=== PATIENT | male | born 1955 | race African-American/Black ===

== ENCOUNTER 2022-01-05 00:32 | Inpatient (IN) | payer MEDICARE ==
[2022-01-05] MEDS ORDERED: Lorazepam 2 MG/ML VIAL ONE ×2 (00:36→03:50)
[2022-01-05 01:02] LABS: #Basophils 0.1 thou/uL (0.0-0.2); #Eosinphils 0.3 thou/uL (0.0-0.7); #Lymphocytes 3.1 thou/uL (1.20-3.40); #Monocytes 0.8 thou/uL (0.11-0.59); #Neutrophils 3.9 thou/uL (1.40-6.50); %Basophils 0.8 % (0.0-1.0); %Eosinophils 3.8 % (0.0-10.0); %Lymphocytes 37.8 % (21.0-51.0); %Monocytes 9.4 % (0.0-10.0); %Neutrophils 48.3 % (42.0-75.0); Hemoglobin 12.1 g/dL (14.0-18.0); Mean Corpuscular HGB CONC 33.6 g/dL (32.0-36.0); Mean Corpuscular Hemoglobin 34.8 pg (27.0-31.0); Mean Platelet Volume 6.1 fL (7.4-10.4); Platelet Count 273 thou/uL (130-400); RBC Distribution Width 12.1 % (11.5-14.5); Red Blood Cell (RBC) Count 3.49 mill/uL (4.70-6.10); White Blood Cell (WBC) Count 8.2 thou/uL (4.8-10.8)
[2022-01-05 01:15] LABS: INR-International Normal Ratio 1.2; Prothrombin Time 15.5 sec (12.0-14.7)
[2022-01-05 01:25] LABS: ALT (SGPT) 11 U/L (8-55); AST (SGOT) 15 U/L (5-34); Albumin 3.3 g/dL (3.4-4.8); Alkaline Phosphatase 67 U/L (40-110); Anion Gap 11 mmol/L (10-20); BUN (Urea Nitrogen) 13 mg/dL (8.4-25.7); Bilirubin, Total 0.2 mg/dL (0.2-1.2); Calc. Creatinine Clearance 0 mL/min (70-130); Calcium 8.4 mg/dL (7.8-10.44); Carbon Dioxide 26 mmol/L (23-31); Chloride 102 mmol/L (98-107); Globulin 3.7 g/dL (2.4-3.5); Glucose 126 mg/dL (80-115); Potassium 3.9 mmol/L (3.5-5.1); Sodium 135 mmol/L (136-145)
[2022-01-05] MEDS ORDERED: Lorazepam 2 MG/ML VIAL SLOW IVP PRN (04:05)
[2022-01-05] MEDS ORDERED: Acetaminophen 650 MG Suppository PR PRN (04:05)
[2022-01-05] MEDS ORDERED: Acetaminophen 325 MG TAB PO PRN (04:05)
[2022-01-05] MEDS ORDERED: Ondansetron ODT 4 MG TAB PO PRN (04:05)
[2022-01-05] MEDS ORDERED: Ondansetron PF 4 MG/2 ML Vial IVP PRN (04:05)
[2022-01-05] MEDS ORDERED: levETIRAcetam 500 MG/5 ML VIAL SLOW IVP SCH ×2 (04:15→21:00)
[2022-01-05 05:04] VITALS: BMI 18.8
[2022-01-05 07:35] LABS: Iron 89 ug/dL (65-175); Iron Binding Capacity, Total 209 mcg/dL (261-462)
[2022-01-05 07:58] LABS: Ferritin 1087.13 ng/mL (22-322)
[2022-01-05] MEDS: Enoxaparin Sodium 40 MG/0.4 ML SYRINGE SC SCH (08:06)
[2022-01-05] MEDS ORDERED: Iopamidol 370 76% 100 ML VIAL ONE (10:15)
[2022-01-05 16:23] LABS: SARS-CoV-2 PCR by NAA Not Detected (NotDetected)
[2022-01-05] MEDS: Lacosamide 100 MG in Sodium Chloride 0.9% 50 ML IVPB SCH (21:22)
[2022-01-05] MEDS: levETIRAcetam 500 MG/5 ML VIAL SLOW IVP SCH (21:23)
[2022-01-06 05:37] LABS: #Basophils 0.1 thou/uL (0.0-0.2); #Eosinphils 0.2 thou/uL (0.0-0.7); #Lymphocytes 3.9 thou/uL (1.20-3.40); #Monocytes 1.8 thou/uL (0.11-0.59); #Neutrophils 6.5 thou/uL (1.40-6.50); %Basophils 0.5 % (0.0-1.0); %Eosinophils 1.5 % (0.0-10.0); %Lymphocytes 31.1 % (21.0-51.0); %Monocytes 14.5 % (0.0-10.0); %Neutrophils 52.3 % (42.0-75.0); Hemoglobin 12.8 g/dL (14.0-18.0); Mean Corpuscular HGB CONC 32.7 g/dL (32.0-36.0); Mean Corpuscular Hemoglobin 33.9 pg (27.0-31.0); Mean Platelet Volume 6.2 fL (7.4-10.4); Platelet Count 305 thou/uL (130-400); RBC Distribution Width 12.3 % (11.5-14.5); Red Blood Cell (RBC) Count 3.76 mill/uL (4.70-6.10); White Blood Cell (WBC) Count 12.4 thou/uL (4.8-10.8)
[2022-01-06 05:47] LABS: Phosphorus 3.1 mg/dL (2.3-4.7)
[2022-01-06 05:50] LABS: Anion Gap 11 mmol/L (10-20); BUN (Urea Nitrogen) 14 mg/dL (8.4-25.7); Calc. Creatinine Clearance 73 mL/min (70-130); Calcium 9.2 mg/dL (7.8-10.44); Carbon Dioxide 29 mmol/L (23-31); Cardiac Risk 3.7 (Less than 4.5); Chloride 103 mmol/L (98-107); Cholesterol 132 mg/dl (< 200 Desired); Glucose 90 mg/dL (80-115); HDL Cholesterol 36 mg/dL (>60 Neg Risk); LDL Cholesterol, Calculated 79 mg/dL; Magnesium 1.9 mg/dL (1.6-2.6); Potassium 3.4 mmol/L (3.5-5.1); Sodium 140 mmol/L (136-145); Triglycerides 85 mg/dL (Less than 150)
[2022-01-06] MEDS: Enoxaparin Sodium 40 MG/0.4 ML SYRINGE SC SCH (08:46)
[2022-01-06] MEDS: levETIRAcetam 500 MG/5 ML VIAL SLOW IVP SCH ×2 (08:47→21:00)
[2022-01-06] MEDS: Lacosamide 100 MG in Sodium Chloride 0.9% 50 ML IVPB SCH ×2 (09:08→21:00)
[2022-01-07] MEDS ORDERED: Melatonin 3 MG TAB PO PRN (07:40)
[2022-01-07] MEDS ORDERED: Aspirin 81 mg Enteric Coated Tablet PO SCH (09:00)
[2022-01-07] MEDS ORDERED: Carvedilol 3.125 MG TAB PO SCH (09:00)
[2022-01-07] MEDS ORDERED: Folic Acid 1 MG TAB PO SCH (09:00)
[2022-01-07] MEDS ORDERED: Famotidine 20 MG TAB PO SCH (09:00)
[2022-01-07] MEDS: Enoxaparin Sodium 40 MG/0.4 ML SYRINGE SC SCH (09:27)
[2022-01-07] MEDS: levETIRAcetam 500 MG/5 ML VIAL SLOW IVP SCH (09:27)
[2022-01-07] MEDS: Lacosamide 100 MG in Sodium Chloride 0.9% 50 ML IVPB SCH (09:39)
[2022-01-07] MEDS ORDERED: Potassium Chloride 20 MEQ TAB PO SCH (10:30)
[2022-01-07 12:46] VITALS: TEMP 98.8
[2022-01-07 13:55] VITALS: BP 87/57
[2022-01-07] MEDS ORDERED: Tamsulosin HCl 0.4 MG CAP PO SCH (21:00)
== END 2022-01-07 15:10 | DRG 101 ==
LOC: ERS 00:32 → NEURO 02:41
PROVIDERS: ADMIT Internal Medicine; ATTEND Internal Medicine
DX: G40.909 Epilepsy, unspecified, not intractable, without status epilepticus (principal); A52.3 Neurosyphilis, unspecified; E87.1 Hypo-osmolality and hyponatremia; I47.1 Supraventricular tachycardia; Z20.822 Contact with and (suspected) exposure to COVID-19; E87.6 Hypokalemia; R33.9 Retention of urine, unspecified; N40.1 Benign prostatic hyperplasia with lower urinary tract symptoms; R33.8 Other retention of urine; I48.91 Unspecified atrial fibrillation; D53.9 Nutritional anemia, unspecified; I77.89 Other specified disorders of arteries and arterioles; R59.1 Generalized enlarged lymph nodes; I65.02 Occlusion and stenosis of left vertebral artery; Z86.73 Personal history of transient ischemic attack (TIA), and cerebral infarction without residual deficits; Z79.899 Other long term (current) drug therapy; Z79.82 Long term (current) use of aspirin
CPT/HCPCS: 36415; 36416; 70450; 70496; 70498; 70551; 71045; 72125; 80048; 80061; 80177; 82607; 82728; 82746; 83540; 83550; 83605; 83735; 84100; 84484; 85025; 85610; 85730; 93005; 95816; 95819; 95957; 96374; 96376; C9254; J1650; J1953; J2060; Q9967; U0003; U0005

== ENCOUNTER 2022-04-10 08:52 | Inpatient (IN) | payer MEDICARE, MEDICAID ==
[2022-04-10] MEDS ORDERED: Midazolam HCl 2 mg/2 ml Vial ONE (08:58)
[2022-04-10] MEDS ORDERED: levETIRAcetam 500 MG/5 ML VIAL ONE (08:58)
[2022-04-10 09:25] LABS: #Eosinphils 0.3 thou/uL (0.0-0.7); #Lymphocytes 4.2 thou/uL (1.20-3.40); #Monocytes 1.3 thou/uL (0.11-0.59); #Neutrophils 6.4 thou/uL (1.40-6.50); %Basophils 0.3 % (0.0-1.0); %Eosinophils 2.5 % (0.0-10.0); %Lymphocytes 34.5 % (21.0-51.0); %Monocytes 10.6 % (0.0-10.0); %Neutrophils 52.1 % (42.0-75.0); Hemoglobin 12.3 g/dL (14.0-18.0); Mean Corpuscular HGB CONC 32.1 g/dL (32.0-36.0); Mean Corpuscular Hemoglobin 33.1 pg (27.0-31.0); Mean Platelet Volume 6.6 fL (7.4-10.4); Platelet Count 269 thou/uL (130-400); RBC Distribution Width 12.1 % (11.5-14.5); Red Blood Cell (RBC) Count 3.74 mill/uL (4.70-6.10); White Blood Cell (WBC) Count 12.2 thou/uL (4.8-10.8)
[2022-04-10 09:35] LABS: INR-International Normal Ratio 1.1; Prothrombin Time 14.6 sec (12.0-14.7)
[2022-04-10 09:36] LABS: PTT 34.2 sec (22.9-36.1)
[2022-04-10 09:39] LABS: ALT (SGPT) 10 U/L (8-55); AST (SGOT) 14 U/L (5-34); Albumin 3.8 g/dL (3.4-4.8); Alkaline Phosphatase 74 U/L (40-110); Anion Gap 12 mmol/L (10-20); BUN (Urea Nitrogen) 12 mg/dL (8.4-25.7); Bilirubin, Total 0.4 mg/dL (0.2-1.2); CK (CPK) 68 U/L (30-200); Calc. Creatinine Clearance 0 mL/min (70-130); Calcium 8.8 mg/dL (7.8-10.44); Carbon Dioxide 26 mmol/L (23-31); Chloride 105 mmol/L (98-107); Estimated GFR 97; Globulin 4.3 g/dL (2.4-3.5); Glucose 103 mg/dL (80-115); Lipase 21 U/L (8-78); Potassium 3.6 mmol/L (3.5-5.1); Protein, Total 8.1 g/dL (5.8-8.1); Sodium 139 mmol/L (136-145)
[2022-04-10] MEDS ORDERED: Iopamidol 370 76% 100 ML VIAL ONE (09:55)
[2022-04-10] MEDS ORDERED: hydrALAZINE 20 MG/ML VIAL SLOW IVP PRN (11:53)
[2022-04-10] MEDS ORDERED: Aspirin 300 MG Suppository ONE (12:13)
[2022-04-10 13:21] LABS: Bilirubin Negative (Negative); Blood, Urine Negative (Negative); Clarity Clear (Clear); Glucose, Urine (Dipstick) Normal (Negative); Ketone, Urine Negative (Negative); Leukocyte Negative Leu/uL (Negative); Nitrite Negative (Negative); Protein, Urine (Dipstick) Negative (Neg-Trace); Specific Gravity, Urine 1.039 (1.002-1.036); Urobilinogen Normal mg/dL (Less than 2)
[2022-04-10] MEDS ORDERED: Midazolam HCl 2 mg/2 ml Vial SLOW IVP PRN (17:39)
[2022-04-10 18:25] VITALS: BMI 18.6
[2022-04-10] MEDS: Atorvastatin Calcium 40 MG TAB PO SCH (20:46)
[2022-04-10] MEDS: levETIRAcetam 500 mg/5 ml Oral Solution PO SCH (20:46)
[2022-04-10] MEDS: Tamsulosin HCl 0.4 MG CAP PO SCH (20:46)
[2022-04-10] MEDS: Lacosamide 50 mg Tablet PO SCH (20:46)
[2022-04-10] MEDS: Melatonin 3 MG TAB PO PRN (20:46)
[2022-04-10] MEDS ORDERED: Enoxaparin Sodium 60 MG/0.6 ML SYRINGE SC SCH (21:00)
[2022-04-10] MEDS ORDERED: levETIRAcetam 500 MG/5 ML VIAL SLOW IVP SCH (21:00)
[2022-04-10] MEDS ORDERED: Lacosamide 100 MG in Sodium Chloride 0.9% 50 ML IVPB SCH (21:00)
[2022-04-11 04:52] LABS: #Eosinphils 0.1 thou/uL (0.0-0.7); #Lymphocytes 2.5 thou/uL (1.20-3.40); #Monocytes 1.2 thou/uL (0.11-0.59); #Neutrophils 7.2 thou/uL (1.40-6.50); %Basophils 0.2 % (0.0-1.0); %Eosinophils 0.9 % (0.0-10.0); %Lymphocytes 22.4 % (21.0-51.0); %Monocytes 11.3 % (0.0-10.0); %Neutrophils 65.3 % (42.0-75.0); Mean Corpuscular HGB CONC 32.9 g/dL (32.0-36.0); Mean Corpuscular Hemoglobin 33.6 pg (27.0-31.0); Mean Platelet Volume 6.5 fL (7.4-10.4); Platelet Count 264 thou/uL (130-400); RBC Distribution Width 12.1 % (11.5-14.5); Red Blood Cell (RBC) Count 3.58 mill/uL (4.70-6.10)
[2022-04-11 05:16] LABS: Anion Gap 12 mmol/L (10-20); BUN (Urea Nitrogen) 9 mg/dL (8.4-25.7); Calc. Creatinine Clearance 88 mL/min (70-130); Calcium 8.8 mg/dL (7.8-10.44); Carbon Dioxide 25 mmol/L (23-31); Cardiac Risk 4.3 (Less than 4.5); Chloride 106 mmol/L (98-107); Cholesterol 133 mg/dl (< 200 Desired); Estimated GFR 99; Glucose 105 mg/dL (80-115); HDL Cholesterol 31 mg/dL (>60 Neg Risk); LDL Cholesterol, Calculated 94 mg/dL; Potassium 3.3 mmol/L (3.5-5.1); Sodium 140 mmol/L (136-145); Triglycerides 42 mg/dL (Less than 150)
[2022-04-11] MEDS ORDERED: FERROUS SULFATE 220 MG/5 ML PO SCH (09:00)
[2022-04-11] MEDS: levETIRAcetam 500 mg/5 ml Oral Solution PO SCH ×2 (09:06→21:10)
[2022-04-11] MEDS: Folic Acid 1 MG TAB PO SCH (09:08)
[2022-04-11] MEDS: Aspirin 325 mg Enteric Coated Tablet PO SCH (09:08)
[2022-04-11] MEDS: Ferrous Sulfate 325 MG TAB PO SCH (09:08)
[2022-04-11] MEDS: Lacosamide 50 mg Tablet PO SCH ×2 (09:08→21:10)
[2022-04-11] MEDS: Carvedilol 3.125 MG TAB PO SCH ×2 (09:08→21:11)
[2022-04-11 17:20] LABS: Bacteria/HPF 4+ HPF (None Seen); Bilirubin Negative (Negative); Blood, Urine 3+ (Negative); Clarity Clear (Clear); Glucose, Urine (Dipstick) Normal (Negative); Ketone, Urine Negative (Negative); Leukocyte 500 Leu/uL (Negative); Nitrite Negative (Negative); Protein, Urine (Dipstick) Negative (Neg-Trace); Specific Gravity, Urine 1.009 (1.002-1.036); Squamous Epithelial 0-3 HPF (0-3); Urobilinogen Normal mg/dL (Less than 2); WBC/HPF Greater than 50 HPF (0-3); pH, Urine 6.5 (5.0-9.0)
[2022-04-11 17:22] LABS: Urine Culture Reflex Yes Yes
[2022-04-11] MEDS: Enoxaparin Sodium 40 MG/0.4 ML SYRINGE SC SCH (21:11)
[2022-04-11] MEDS: Atorvastatin Calcium 40 MG TAB PO SCH (21:11)
[2022-04-11] MEDS: Tamsulosin HCl 0.4 MG CAP PO SCH (21:11)
[2022-04-12] MEDS ORDERED: Electrolyte Replacement Protocol FS PRN (05:30)
[2022-04-12] MEDS ORDERED: Potassium Chloride 20 MEQ TAB PO SCH (05:30)
[2022-04-12] MEDS ORDERED: Potassium Bicarbonate/Cit Ac 20 MEQ TAB PO SCH (05:45)
[2022-04-12 06:42] LABS: #Eosinphils 0.2 thou/uL (0.0-0.7); #Lymphocytes 3.4 thou/uL (1.20-3.40); #Monocytes 2.1 thou/uL (0.11-0.59); %Basophils 0.2 % (0.0-1.0); %Eosinophils 0.9 % (0.0-10.0); %Lymphocytes 19.4 % (21.0-51.0); %Monocytes 11.7 % (0.0-10.0); %Neutrophils 67.8 % (42.0-75.0); Hemoglobin 12.4 g/dL (14.0-18.0); Mean Corpuscular HGB CONC 31.8 g/dL (32.0-36.0); Mean Corpuscular Hemoglobin 32.2 pg (27.0-31.0); Mean Platelet Volume 6.1 fL (7.4-10.4); Platelet Count 293 thou/uL (130-400); RBC Distribution Width 12.2 % (11.5-14.5); Red Blood Cell (RBC) Count 3.87 mill/uL (4.70-6.10); White Blood Cell (WBC) Count 17.7 thou/uL (4.8-10.8)
[2022-04-12 06:55] LABS: Anion Gap 13 mmol/L (10-20); BUN (Urea Nitrogen) 13 mg/dL (8.4-25.7); Calc. Creatinine Clearance 79 mL/min (70-130); Calcium 9.1 mg/dL (7.8-10.44); Carbon Dioxide 26 mmol/L (23-31); Chloride 105 mmol/L (98-107); Estimated GFR 96; Glucose 97 mg/dL (80-115); Magnesium 1.8 mg/dL (1.6-2.6); Potassium 3.3 mmol/L (3.5-5.1); Sodium 141 mmol/L (136-145)
[2022-04-12] MEDS ORDERED: Magnesium 2 GM/50 ML(in water) 2 GM in Premix Bag 1 BAG IVPB SCH (08:00)
[2022-04-12] MEDS: Aspirin 325 mg Enteric Coated Tablet PO SCH (09:01)
[2022-04-12] MEDS: Ferrous Sulfate 325 MG TAB PO SCH (09:01)
[2022-04-12] MEDS: Carvedilol 3.125 MG TAB PO SCH (09:02)
[2022-04-12] MEDS: Folic Acid 1 MG TAB PO SCH (09:02)
[2022-04-12] MEDS: Lacosamide 50 mg Tablet PO SCH ×2 (09:02→21:03)
[2022-04-12] MEDS: levETIRAcetam 500 mg/5 ml Oral Solution PO SCH ×2 (09:02→20:49)
[2022-04-12 11:21] LABS: Potassium 4.2 mmol/L (3.5-5.1)
[2022-04-12] MEDS ORDERED: Sodium Chloride 0.9% 500 ML IV SCH ×2 (16:00→20:30)
[2022-04-12] MEDS ORDERED: Carvedilol 6.25 MG TAB PO SCH (17:00)
[2022-04-12] MEDS: Atorvastatin Calcium 40 MG TAB PO SCH (20:49)
[2022-04-12] MEDS: Enoxaparin Sodium 40 MG/0.4 ML SYRINGE SC SCH (20:49)
[2022-04-12] MEDS: Tamsulosin HCl 0.4 MG CAP PO SCH (20:49)
[2022-04-12] MEDS: Melatonin 3 MG TAB PO PRN (20:49)
[2022-04-12 21:27] LABS: Anion Gap 13 mmol/L (10-20); BUN (Urea Nitrogen) 16 mg/dL (8.4-25.7); Calc. Creatinine Clearance 73 mL/min (70-130); Calcium 8.6 mg/dL (7.8-10.44); Carbon Dioxide 24 mmol/L (23-31); Chloride 106 mmol/L (98-107); Estimated GFR 94; Glucose 111 mg/dL (80-115); Magnesium 1.9 mg/dL (1.6-2.6); Potassium 3.6 mmol/L (3.5-5.1); Sodium 139 mmol/L (136-145)
[2022-04-13] MEDS ORDERED: Magnesium 2 GM/50 ML(in water) 2 GM in Premix Bag 1 BAG IVPB SCH (02:00)
[2022-04-13 05:22] LABS: #Eosinphils 0.1 thou/uL (0.0-0.7); #Lymphocytes 3.6 thou/uL (1.20-3.40); #Monocytes 2.4 thou/uL (0.11-0.59); #Neutrophils 12.5 thou/uL (1.40-6.50); %Basophils 0.2 % (0.0-1.0); %Eosinophils 0.7 % (0.0-10.0); %Lymphocytes 19.2 % (21.0-51.0); %Monocytes 12.8 % (0.0-10.0); %Neutrophils 67.2 % (42.0-75.0); Hemoglobin 11.5 g/dL (14.0-18.0); Mean Corpuscular HGB CONC 33.8 g/dL (32.0-36.0); Mean Corpuscular Hemoglobin 34.3 pg (27.0-31.0); Mean Platelet Volume 6.6 fL (7.4-10.4); Platelet Count 259 thou/uL (130-400); RBC Distribution Width 12.1 % (11.5-14.5); Red Blood Cell (RBC) Count 3.35 mill/uL (4.70-6.10); White Blood Cell (WBC) Count 18.6 thou/uL (4.8-10.8)
[2022-04-13 05:41] LABS: Anion Gap 11 mmol/L (10-20); BUN (Urea Nitrogen) 16 mg/dL (8.4-25.7); Calc. Creatinine Clearance 82 mL/min (70-130); Calcium 8.5 mg/dL (7.8-10.44); Carbon Dioxide 24 mmol/L (23-31); Chloride 107 mmol/L (98-107); Estimated GFR 97; Glucose 106 mg/dL (80-115); Magnesium 2.6 mg/dL (1.6-2.6); Potassium 3.4 mmol/L (3.5-5.1); Sodium 139 mmol/L (136-145)
[2022-04-13] MEDS ORDERED: Potassium Bicarbonate/Cit Ac 20 MEQ TAB PO SCH (08:00)
[2022-04-13] MEDS: Aspirin 325 mg Enteric Coated Tablet PO SCH (08:52)
[2022-04-13] MEDS: levETIRAcetam 500 mg/5 ml Oral Solution PO SCH ×2 (08:52→21:50)
[2022-04-13] MEDS: Ferrous Sulfate 325 MG TAB PO SCH (08:53)
[2022-04-13] MEDS: Metoprolol Tartrate 25 MG TAB PO SCH ×2 (08:53→21:50)
[2022-04-13] MEDS: Lacosamide 50 mg Tablet PO SCH ×2 (08:53→21:49)
[2022-04-13] MEDS: Folic Acid 1 MG TAB PO SCH (08:53)
[2022-04-13] MEDS ORDERED: cefTRIAXone\\ROCEPHIN 1 GM in Sodium Chloride 0.9% 100 ML IVPB SCH (15:00)
[2022-04-13] MEDS: Tamsulosin HCl 0.4 MG CAP PO SCH (21:49)
[2022-04-13] MEDS: Atorvastatin Calcium 40 MG TAB PO SCH (21:49)
[2022-04-13] MEDS: Enoxaparin Sodium 40 MG/0.4 ML SYRINGE SC SCH (21:50)
[2022-04-14 05:17] LABS: #Eosinphils 0.1 thou/uL (0.0-0.7); #Monocytes 1.7 thou/uL (0.11-0.59); #Neutrophils 7.4 thou/uL (1.40-6.50); %Basophils 0.3 % (0.0-1.0); %Eosinophils 1.3 % (0.0-10.0); %Lymphocytes 17.5 % (21.0-51.0); %Monocytes 14.8 % (0.0-10.0); %Neutrophils 66.1 % (42.0-75.0); Hemoglobin 11.9 g/dL (14.0-18.0); Mean Corpuscular Hemoglobin 33.4 pg (27.0-31.0); Mean Platelet Volume 6.4 fL (7.4-10.4); Platelet Count 256 thou/uL (130-400); Red Blood Cell (RBC) Count 3.57 mill/uL (4.70-6.10); White Blood Cell (WBC) Count 11.2 thou/uL (4.8-10.8)
[2022-04-14 05:42] LABS: ALT (SGPT) 9 U/L (8-55); AST (SGOT) 12 U/L (5-34); Albumin 3.4 g/dL (3.4-4.8); Alkaline Phosphatase 66 U/L (40-110); Anion Gap 13 mmol/L (10-20); BUN (Urea Nitrogen) 14 mg/dL (8.4-25.7); Bilirubin, Total 0.4 mg/dL (0.2-1.2); Calc. Creatinine Clearance 85 mL/min (70-130); Calcium 8.6 mg/dL (7.8-10.44); Carbon Dioxide 24 mmol/L (23-31); Chloride 104 mmol/L (98-107); Estimated GFR 98; Globulin 4.3 g/dL (2.4-3.5); Glucose 97 mg/dL (80-115); Potassium 3.5 mmol/L (3.5-5.1); Protein, Total 7.7 g/dL (5.8-8.1); Sodium 137 mmol/L (136-145)
[2022-04-14] MEDS ORDERED: Potassium Bicarbonate/Cit Ac 20 MEQ TAB PO SCH (08:00)
[2022-04-14] MEDS: Aspirin 325 mg Enteric Coated Tablet PO SCH (08:15)
[2022-04-14] MEDS: levETIRAcetam 500 mg/5 ml Oral Solution PO SCH (08:15)
[2022-04-14] MEDS: Folic Acid 1 MG TAB PO SCH (08:16)
[2022-04-14] MEDS: Ferrous Sulfate 325 MG TAB PO SCH (08:16)
[2022-04-14] MEDS: Metoprolol Tartrate 25 MG TAB PO SCH (08:16)
[2022-04-14] MEDS: Lacosamide 50 mg Tablet PO SCH (08:16)
[2022-04-14 11:54] VITALS: BP 114/70; TEMP 98.8
[2022-04-14] MEDS ORDERED: cefTRIAXone\\ROCEPHIN 1 GM in Sodium Chloride 0.9% 100 ML IVPB SCH (15:00)
== END 2022-04-14 15:25 | DRG 100 ==
LOC: ERS 08:52 → ERHOLD 11:26 → NEURO 17:39 → OBSVTOIN 04-11 11:30
PROVIDERS: ADMIT Student in an Organized Health Care Education/Training Program; ATTEND Student in an Organized Health Care Education/Training Program
DX: G40.909 Epilepsy, unspecified, not intractable, without status epilepticus (principal); G93.41 Metabolic encephalopathy; N30.00 Acute cystitis without hematuria; I47.1 Supraventricular tachycardia; Z16.23 Resistance to quinolones and fluoroquinolones; A52.3 Neurosyphilis, unspecified; I48.0 Paroxysmal atrial fibrillation; I10 Essential (primary) hypertension; N40.0 Benign prostatic hyperplasia without lower urinary tract symptoms; D53.9 Nutritional anemia, unspecified; B96.4 Proteus (mirabilis) (morganii) as the cause of diseases classified elsewhere; Z86.73 Personal history of transient ischemic attack (TIA), and cerebral infarction without residual deficits; Z79.899 Other long term (current) drug therapy; Z79.82 Long term (current) use of aspirin
CPT/HCPCS: 36415; 51701; 70450; 70496; 70498; 70551; 71045; 80048; 80061; 81001; 81003; 82550; 82607; 83690; 83735; 84443; 84484; 85025; 85610; 85730; 87040; 87077; 87086; 87186; 93005; 93010; 93306; 94760; 95712; 95819; 95957; 96372; 96374; 96375; G0378; J0696; J1650; J1953; J2250; J3475; J3490; J7030; Q9967; U0003; U0005

== ENCOUNTER 2022-07-27 08:24 | Inpatient (IN) | payer MEDICARE, MEDICAID ==
[2022-07-27] MEDS ORDERED: LORazepam 2 MG/ML SYR.(CARPUJECT) ONE (08:36)
[2022-07-27] MEDS ORDERED: levETIRAcetam 500 MG/5 ML VIAL ONE (08:43)
[2022-07-27] MEDS ORDERED: Midazolam HCl 2 mg/2 ml Vial ONE (08:46)
[2022-07-27 09:25] LABS: Bacteria/HPF None Seen HPF (None Seen); Bilirubin Negative (Negative); Blood, Urine Trace (Negative); Clarity Clear (Clear); Glucose, Urine (Dipstick) Normal (Negative); Ketone, Urine Negative (Negative); Leukocyte Negative Leu/uL (Negative); Nitrite Negative (Negative); Protein, Urine (Dipstick) Negative (Neg-Trace); Specific Gravity, Urine 1.016 (1.002-1.036); Squamous Epithelial 0-3 HPF (0-3); Urobilinogen Normal mg/dL (Less than 2); WBC/HPF 0-3 HPF (0-3); pH, Urine 6.5 (5.0-9.0)
[2022-07-27 09:48] LABS: Hemoglobin 12.2 g/dL (14.0-18.0); Mean Corpuscular HGB CONC 32.7 g/dL (32.0-36.0); Mean Corpuscular Hemoglobin 33.8 pg (27.0-31.0); Mean Platelet Volume 6.8 fL (7.4-10.4); Platelet Count 288 10x3/uL (130-400); RBC Distribution Width 12.4 % (11.5-14.5); Red Blood Cell (RBC) Count 3.61 mill/uL (4.70-6.10); White Blood Cell (WBC) Count 7.7 10x3/uL (4.8-10.8)
[2022-07-27 10:06] LABS: ALT (SGPT) 40 U/L (8-55); AST (SGOT) 30 U/L (5-34); Albumin 3.7 g/dL (3.4-4.8); Alkaline Phosphatase 77 U/L (40-110); Anion Gap 13 mmol/L (10-20); BUN (Urea Nitrogen) 13 mg/dL (8.4-25.7); Bilirubin, Total 0.3 mg/dL (0.2-1.2); CK (CPK) 84 U/L (30-200); Calc. Creatinine Clearance 0 mL/min (70-130); Calcium 8.7 mg/dL (7.8-10.44); Carbon Dioxide 23 mmol/L (23-31); Chloride 106 mmol/L (98-107); Estimated GFR 99; Globulin 4.5 g/dL (2.4-3.5); Glucose 106 mg/dL (80-115); Potassium 3.9 mmol/L (3.5-5.1); Protein, Total 8.2 g/dL (5.8-8.1); Sodium 138 mmol/L (136-145)
[2022-07-27 10:17] LABS: Band 14 % (5-11); Eosinophils 1 % (0-10); Lymphocytes 10 % (21-51); MDiff Complete? YES; Macrocytosis SLIGHT = 6-15 cells (100X) (0-5/hpf); Monocytes 14 % (0-10); Neutrophil 58 % (42-75); Platelet Morphology Comment Appears Adequate; Polychromasia SLIGHT = 2-3 cells (100X) (0-2/hpf); Reactive Lymphocytes 3 % (0-10)
[2022-07-27] MEDS ORDERED: Piperacillin/Tazobactam 4.5 GM VIAL ONE (10:20)
[2022-07-27 11:55] LABS: SARS-CoV-2 NAA Rapid Test DETECTED (NotDetected)
[2022-07-27] MEDS ORDERED: Lorazepam 2 MG/ML VIAL SLOW IVP PRN (12:08)
[2022-07-27] MEDS ORDERED: Ondansetron ODT 4 MG TAB PO PRN (12:15)
[2022-07-27] MEDS ORDERED: Piperacillin/Tazobactam 3.375 GM in Sodium Chloride 0.9% 100 ML IVPB SCH ×3 (12:15→22:00)
[2022-07-27] MEDS ORDERED: Acetaminophen 325 MG TAB PO PRN (12:15)
[2022-07-27] MEDS ORDERED: Ondansetron PF 4 MG/2 ML Vial IVP PRN (12:15)
[2022-07-27] MEDS ORDERED: Metoclopramide HCl 10 MG/2 ML VIAL IVP PRN (12:37)
[2022-07-27 12:49] LABS: Magnesium 1.8 mg/dL (1.6-2.6)
[2022-07-27] MEDS: Lactated Ringer's 1,000 ML IV SCH ×2 (12:55→22:58)
[2022-07-27 13:07] LABS: Lactic Acid 3.2 mmol/L (0.5-2.2)
[2022-07-27] MEDS ORDERED: levETIRAcetam in NS 1,500 MG in Premix Bag 1 BAG IVPB SCH (21:00)
[2022-07-27] MEDS ORDERED: levETIRAcetam in NS 1,000 MG in Premix Bag 1 BAG IVPB SCH (21:00)
[2022-07-27 22:22] VITALS: BMI 21.9
[2022-07-27] MEDS: Acetaminophen 650 MG Suppository PR PRN (22:58)
[2022-07-27] MEDS: Lacosamide 100 MG in Sodium Chloride 0.9% 50 ML IVPB SCH (22:58)
[2022-07-27] MEDS: levETIRAcetam 500 MG/5 ML VIAL SLOW IVP SCH (23:41)
[2022-07-28] MEDS: Acetaminophen 650 MG Suppository PR PRN (04:05)
[2022-07-28 05:22] LABS: Lactic Acid 0.9 mmol/L (0.5-2.2)
[2022-07-28 05:35] LABS: Anion Gap 13 mmol/L (10-20); BUN (Urea Nitrogen) 16 mg/dL (8.4-25.7); Calc. Creatinine Clearance 72 mL/min (70-130); Calcium 8.7 mg/dL (7.8-10.44); Carbon Dioxide 23 mmol/L (23-31); Chloride 105 mmol/L (98-107); Estimated GFR 93; Glucose 96 mg/dL (80-115); Potassium 3.5 mmol/L (3.5-5.1); Sodium 137 mmol/L (136-145)
[2022-07-28 05:47] LABS: Band 9 % (5-11); Hemoglobin 11.3 g/dL (14.0-18.0); Lymphocytes 18 % (21-51); MDiff Complete? YES; Mean Corpuscular HGB CONC 31.9 g/dL (32.0-36.0); Mean Corpuscular Hemoglobin 32.8 pg (27.0-31.0); Mean Platelet Volume 6.6 fL (7.4-10.4); Monocytes 24 % (0-10); Neutrophil 49 % (42-75); Platelet Count 282 10x3/uL (130-400); RBC Distribution Width 12.3 % (11.5-14.5); Red Blood Cell (RBC) Count 3.45 mill/uL (4.70-6.10); White Blood Cell (WBC) Count 8.4 10x3/uL (4.8-10.8)
[2022-07-28] MEDS: Ascorbic Acid 500 mg Chewable Tablet PO SCH (07:58)
[2022-07-28] MEDS: Zinc Sulfate 220 MG CAP PO SCH (07:59)
[2022-07-28] MEDS: levETIRAcetam 500 MG/5 ML VIAL SLOW IVP SCH ×2 (09:52→21:52)
[2022-07-28] MEDS: Sodium Chloride 0.9% 1,000 ML IV SCH (09:53)
[2022-07-28] MEDS: Piperacillin/Tazobactam 3.375 GM in Sodium Chloride 0.9% 100 ML IVPB SCH ×2 (09:53→17:04)
[2022-07-28] MEDS: Lacosamide 100 MG in Sodium Chloride 0.9% 50 ML IVPB SCH ×2 (10:17→21:52)
[2022-07-29] MEDS: Piperacillin/Tazobactam 3.375 GM in Sodium Chloride 0.9% 100 ML IVPB SCH ×3 (00:16→15:43)
[2022-07-29] MEDS: Sodium Chloride 0.9% 1,000 ML IV SCH ×2 (00:17→12:26)
[2022-07-29 06:12] LABS: Anion Gap 12 mmol/L (10-20); BUN (Urea Nitrogen) 13 mg/dL (8.4-25.7); Calc. Creatinine Clearance 78 mL/min (70-130); Calcium 8.4 mg/dL (7.8-10.44); Carbon Dioxide 21 mmol/L (23-31); Chloride 106 mmol/L (98-107); Estimated GFR 96; Glucose 91 mg/dL (80-115); Magnesium 1.8 mg/dL (1.6-2.6); Potassium 3.2 mmol/L (3.5-5.1); Sodium 136 mmol/L (136-145)
[2022-07-29 06:39] LABS: Hemoglobin 12.1 g/dL (14.0-18.0); Mean Corpuscular HGB CONC 32.1 g/dL (32.0-36.0); Mean Corpuscular Hemoglobin 33.3 pg (27.0-31.0); Mean Platelet Volume 7.1 fL (7.4-10.4); Platelet Count 273 10x3/uL (130-400); RBC Distribution Width 12.4 % (11.5-14.5); Red Blood Cell (RBC) Count 3.64 mill/uL (4.70-6.10); White Blood Cell (WBC) Count 9.7 10x3/uL (4.8-10.8)
[2022-07-29 06:41] LABS: Band 4 % (5-11); Lymphocytes 29 % (21-51); MDiff Complete? YES; Monocytes 30 % (0-10); Neutrophil 37 % (42-75)
[2022-07-29] MEDS: Ascorbic Acid 500 mg Chewable Tablet PO SCH (09:05)
[2022-07-29] MEDS: levETIRAcetam 500 MG/5 ML VIAL SLOW IVP SCH (09:05)
[2022-07-29] MEDS: Zinc Sulfate 220 MG CAP PO SCH (09:06)
[2022-07-29] MEDS: Lacosamide 100 MG in Sodium Chloride 0.9% 50 ML IVPB SCH (09:42)
[2022-07-29] MEDS ORDERED: Potassium Chloride 20 MEQ TAB PO SCH (14:45)
[2022-07-29 16:36] VITALS: BP 117/64; TEMP 98.8
[2022-07-29] MEDS ORDERED: levETIRAcetam 500 mg/5 ml Oral Solution PO SCH (21:00)
== END 2022-07-29 19:24 | DRG 177 ==
LOC: ERS 08:24 → ERHOLD 10:33 → 2SW 20:51 → NEURO 07-28 15:47 → OBSVTOIN 07-29 08:17
PROVIDERS: ADMIT Family Medicine; ATTEND Internal Medicine
PROC: 4A00X4Z Measurement of Central Nervous Electrical Activity, External Approach (ICD-10-PCS; principal; 2022-07-28)
PROC: 8E0ZXY6 Isolation (ICD-10-PCS; 2022-07-28)
DX: U07.1 COVID-19 (principal); G93.41 Metabolic encephalopathy; J69.0 Pneumonitis due to inhalation of food and vomit; E87.20 Acidosis, unspecified; I47.1 Supraventricular tachycardia; A52.3 Neurosyphilis, unspecified; I48.0 Paroxysmal atrial fibrillation; N40.0 Benign prostatic hyperplasia without lower urinary tract symptoms; R13.10 Dysphagia, unspecified; I10 Essential (primary) hypertension; D53.1 Other megaloblastic anemias, not elsewhere classified; I44.4 Left anterior fascicular block; G40.909 Epilepsy, unspecified, not intractable, without status epilepticus; Z79.82 Long term (current) use of aspirin; Z79.899 Other long term (current) drug therapy
CPT/HCPCS: 36415; 36416; 51701; 70450; 71045; 80048; 80053; 80177; 81003; 81015; 82140; 82550; 83605; 83735; 85025; 87040; 87077; 87149; 87186; 93005; 93010; 95816; 95819; 95957; 96365; 96366; 96367; 96375; 96376; C9254; G0378; J1953; J2060; J2250; J2543; J3490; J7050; J7120

== ENCOUNTER 2023-07-16 09:02 | Emergency (ER) | payer MEDICARE, MEDICAID ==
[2023-07-16] MEDS ORDERED: LORazepam 2 MG/ML SYR.(CARPUJECT) ONE (09:16)
[2023-07-16] MEDS ORDERED: levETIRAcetam 500 MG/5 ML VIAL ONE ×2 (09:33→10:54)
[2023-07-16 09:47] LABS: #Basophils 0.1 thou/uL (0.0-0.2); #Monocytes 1.3 thou/uL (0.11-0.59); %Basophils 0.3 % (0.0-1.0); %Eosinophils 0.1 % (0.0-10.0); %Lymphocytes 7.5 % (21.0-51.0); %Monocytes 8.2 % (0.0-10.0); %Neutrophils 83.5 % (42.0-75.0); Hematocrit 39.5 % (42.0-52.0); Hemoglobin 12.7 g/dL (14.0-18.0); Mean Corpuscular HGB CONC 32.2 g/dL (32.0-36.0); Mean Corpuscular Hemoglobin 32.2 pg (27.0-31.0); Mean Platelet Volume 9.1 fL (7.4-10.4); Platelet Count 247 10x3/uL (130-400); RBC Distribution Width 12.8 % (11.5-14.5); Red Blood Cell (RBC) Count 3.95 mill/uL (4.70-6.10); White Blood Cell (WBC) Count 15.6 10x3/uL (4.8-10.8)
[2023-07-16 10:01] LABS: INR-International Normal Ratio 1.2; PTT 27.6 sec (22.9-36.1); Prothrombin Time 15.2 sec (12.0-14.7)
[2023-07-16 10:09] LABS: ALT (SGPT) 11 U/L (8-55); AST (SGOT) 14 U/L (5-34); Alkaline Phosphatase 85 U/L (40-110); Anion Gap 16 mmol/L (10-20); BUN (Urea Nitrogen) 11 mg/dL (8.4-25.7); Bilirubin, Total 0.4 mg/dL (0.2-1.2); CK (CPK) 231 U/L (30-200); Calc. Creatinine Clearance 0 mL/min (70-130); Calcium 8.7 mg/dL (7.8-10.44); Carbon Dioxide 24 mmol/L (23-31); Chloride 102 mmol/L (98-107); Estimated GFR 93; Globulin 4.1 g/dL (2.4-3.5); Glucose 142 mg/dL (80-115); Potassium 3.3 mmol/L (3.5-5.1); Protein, Total 8.1 g/dL (5.8-8.1); Sodium 139 mmol/L (136-145)
[2023-07-16 10:12] LABS: Troponin I 0.023 ng/mL (< 0.028)
[2023-07-16] MEDS ORDERED: Iopamidol-370 76% 500 ML MDV (1 ML CHARGE) ONE (10:30)
[2023-07-16] MEDS ORDERED: Lacosamide 200 MG in Sodium Chloride 0.9% 50 ML IVPB SCH (11:00)
[2023-07-16] MEDS ORDERED: Potassium Chloride 20 MEQ TAB ONE (11:22)
[2023-07-16] MEDS ORDERED: Potassium Chloride 20 MEQ/100 ML PREMIX BAG ONE (11:22)
[2023-07-16 13:25] LABS: Lactic Acid 3.7 mmol/L (0.5-2.2)
== END 2023-07-16 13:28 | disposition short-term general hospital (02) ==
LOC: ERS 09:02
DX: G40.909 Epilepsy, unspecified, not intractable, without status epilepticus (principal); E87.20 Acidosis, unspecified; I10 Essential (primary) hypertension
CPT/HCPCS: 0042T; 70450; 70496; 70498; 71045; 80053; 82550; 82962; 83605; 84484; 85025; 85610; 85730; 93005; 96365; 96366; 96367; 96375; 99285; J1953; J2060; 36415; 36416; C9254; J3480; Q9967

== ENCOUNTER 2024-06-30 05:52 | Observation (INO) | payer MEDICARE, MEDICAID ==
[2024-06-30 06:40] LABS: #Basophils 0.03 10x3/uL (0.0-0.2); #Eosinophils Less than 0.03 10x3/uL (0.0-0.7); %Basophils 0.4 % (0.0-1.0); %Lymphocytes 11.5 % (21.0-51.0); %Monocytes 7.6 % (0.0-10.0); %Neutrophils 80.2 % (42.0-75.0); Hematocrit 41.5 % (42.0-52.0); Hemoglobin 13.5 g/dL (14.0-18.0); Mean Corpuscular HGB CONC 32.5 g/dL (32.0-36.0); Mean Corpuscular Hemoglobin 32.1 pg (27.0-31.0); Mean Corpuscular Volume 98.8 fL (78.0-98.0); Mean Platelet Volume 9.3 fL (7.4-10.4); Platelet Count 217 10x3/uL (130-400); RBC Distribution Width 13.3 % (11.5-14.5)
[2024-06-30 06:57] LABS: Lipase 17 U/L (8-78)
[2024-06-30 06:58] LABS: ALT (SGPT) 24 U/L (8-55); AST (SGOT) 25 U/L (5-34); Alkaline Phosphatase 73 U/L (40-110); Anion Gap 14 mmol/L (10-20); BUN (Urea Nitrogen) 12 mg/dL (8.4-25.7); Bilirubin, Total 0.4 mg/dL (0.2-1.2); Calc. Creatinine Clearance 0 mL/min (70-130); Carbon Dioxide 21 mmol/L (23-31); Chloride 109 mmol/L (98-107); Estimated GFR 93; Globulin 4.5 g/dL (2.4-3.5); Glucose 97 mg/dL (80-115); Potassium 3.2 mmol/L (3.5-5.1); Protein, Total 8.5 g/dL (5.8-8.1); Sodium 141 mmol/L (136-145)
[2024-06-30 06:59] LABS: Acetaminophen Less than 10 mcg/mL (Less than 10); Alcohol Less than 10.0 mg/dL (Less than 10); Salicylate Less than 8.0 mg/dL (Less than 8.0)
[2024-06-30 07:03] LABS: Troponin I 0.063 ng/mL (< 0.028)
[2024-06-30] MEDS ORDERED: Aspirin 300 MG Suppository ONE (08:41)
[2024-06-30] MEDS ORDERED: Potassium Chloride 20 MEQ (100 mL) BAG ONE (08:54)
[2024-06-30 09:07] LABS: Amphetamine Not Detected (NotDetected); Barbiturates Screen Not Detected (NotDetected); Benzodiazepine Screen Not Detected (NotDetected); Cocaine Metabolite Screen Not Detected (NotDetected); Methadone Not Detected (NotDetected); Methamphetamine Not Detected (NotDetected); Opiate Screen Not Detected (NotDetected); Oxycodone Screen Not Detected (NotDetected); Phencyclidine (PCP) Not Detected (NotDetected); THC/Cannabinoid Screen Not Detected (NotDetected); Tricyclic Screen Not Detected (NotDetected)
[2024-06-30 09:12] LABS: Bacteria/HPF None Seen HPF (None Seen); Bilirubin Negative (Negative); Blood, Urine 3+ (Negative); CAUTI Indications for Culture < 2yrs of age; Clarity Turbid (Clear); Glucose, Urine (Dipstick) Normal (Negative); Ketone, Urine Negative (Negative); Leukocyte 75 Leu/uL (Negative); Nitrite Negative (Negative); Protein, Urine (Dipstick) Negative (Neg-Trace); RBC/HPF Greater than 50 HPF (0-3); Specific Gravity, Urine 1.006 (1.002-1.036); Urobilinogen Normal mg/dL (Less than 2); pH, Urine 6.5 (5.0-9.0)
[2024-06-30 09:16] LABS: Urine Culture Reflex No No; Urine Culture Reflex Yes Yes
[2024-06-30] MEDS ORDERED: Acetaminophen 325 MG TAB PO PRN (10:23)
[2024-06-30] MEDS ORDERED: Acetaminophen 650 MG Suppository PR PRN (10:23)
[2024-06-30 13:28] LABS: Troponin I 0.084 ng/mL (< 0.028)
[2024-06-30] MEDS: Potassium Chloride 20 MEQ TAB PO SCH (14:04)
[2024-06-30 18:59] LABS: Troponin I 0.036 ng/mL (< 0.028)
[2024-06-30] MEDS: Famotidine 20 MG TAB PO SCH (21:59)
[2024-06-30] MEDS: Tamsulosin HCl 0.4 MG CAP PO SCH (21:59)
[2024-06-30] MEDS: levETIRAcetam 500 mg/5 ml Oral Solution PO SCH (21:59)
[2024-06-30] MEDS: Atorvastatin Calcium 40 MG TAB PO SCH (21:59)
[2024-06-30] MEDS: Lacosamide 50 mg Tablet PO SCH (21:59)
[2024-06-30] MEDS: Metoprolol Tartrate 25 MG TAB PO SCH (21:59)
[2024-07-01 04:35] LABS: #Basophils 0.04 10x3/uL (0.0-0.2); #Eosinophils Less than 0.03 10x3/uL (0.0-0.7); %Basophils 0.3 % (0.0-1.0); %Eosinophils 0.2 % (0.0-10.0); %Lymphocytes 24.9 % (21.0-51.0); %Monocytes 10.8 % (0.0-10.0); %Neutrophils 63.5 % (42.0-75.0); Hematocrit 38.2 % (42.0-52.0); Hemoglobin 12.3 g/dL (14.0-18.0); Mean Corpuscular HGB CONC 32.2 g/dL (32.0-36.0); Mean Corpuscular Hemoglobin 31.3 pg (27.0-31.0); Mean Corpuscular Volume 97.2 fL (78.0-98.0); Mean Platelet Volume 9.6 fL (7.4-10.4); Platelet Count 234 10x3/uL (130-400); RBC Distribution Width 13.2 % (11.5-14.5); Red Blood Cell (RBC) Count 3.93 mill/uL (4.70-6.10)
[2024-07-01 05:11] LABS: Anion Gap 13 mmol/L (10-20); BUN (Urea Nitrogen) 9 mg/dL (8.4-25.7); Calc. Creatinine Clearance 73 mL/min (70-130); Calcium 8.7 mg/dL (7.8-10.44); Carbon Dioxide 24 mmol/L (23-31); Chloride 109 mmol/L (98-107); Estimated GFR 96; Glucose 93 mg/dL (80-115); Potassium 3.8 mmol/L (3.5-5.1); Sodium 142 mmol/L (136-145)
[2024-07-01] MEDS: FLU (Fluad Triv) TS24-25 (65UP)/MF59C/PF 45 MCG/0.5 ML Syringe IM ONE (09:46)
[2024-07-01] MEDS: Folic Acid 1 MG TAB PO SCH (09:52)
[2024-07-01] MEDS: Thiamine 100 MG TAB PO SCH (09:52)
[2024-07-01] MEDS: Aspirin 81 mg Enteric Coated Tablet PO SCH (09:52)
[2024-07-01] MEDS: Enoxaparin 40 MG (0.4 mL) SYRINGE SC SCH (09:52)
[2024-07-01] MEDS: Ferrous Sulfate 325 MG TAB PO SCH (09:52)
[2024-07-01] MEDS: cefTRIAXone\\ROCEPHIN 1 GM in Sodium Chloride 0.9% 100 ML IVPB SCH (10:20)
[2024-07-01 11:14] VITALS: BP 112/65; TEMP 98.2
== END 2024-07-01 12:29 ==
LOC: ERS 05:52 → INTOOBSV 09:36 → 2NO 09:36
PROVIDERS: ADMIT Hospitalist; ATTEND Internal Medicine
DX: G93.41 Metabolic encephalopathy (principal); G40.909 Epilepsy, unspecified, not intractable, without status epilepticus; I10 Essential (primary) hypertension; I48.91 Unspecified atrial fibrillation; I24.89 Other forms of acute ischemic heart disease; I5A Non-ischemic myocardial injury (non-traumatic); N40.0 Benign prostatic hyperplasia without lower urinary tract symptoms; N39.0 Urinary tract infection, site not specified; D53.1 Other megaloblastic anemias, not elsewhere classified; Z86.73 Personal history of transient ischemic attack (TIA), and cerebral infarction without residual deficits; Z79.82 Long term (current) use of aspirin; Z79.2 Long term (current) use of antibiotics; Z79.899 Other long term (current) drug therapy
CPT/HCPCS: 70450; 80048; 80053; 80177; 80306; 80307; 81001; 83605; 83690; 84484 ×2; 85025 ×2; 87040; 87077; 87086; 87186; 93005; 96372; 96375; G0378 ×3; G0480; J0696; J1650; J3480; 36415; 80339; 93010

== ENCOUNTER 2025-04-26 09:08 | Emergency (ER) | payer MEDICARE, OTHER ==
[2025-04-26] MEDS ORDERED: levETIRAcetam 500 MG (5 mL) VIAL ONE ×2 (09:29→12:08)
[2025-04-26 09:51] LABS: #Basophils 0.06 10x3/uL (0.0-0.2); #Eosinophils 0.09 10x3/uL (0.0-0.7); #Monocytes 1.69 10x3/uL (0.11-0.59); #Neutrophils 2.18 10x3/uL (1.40-6.50); %Basophils 0.7 % (0.0-1.0); %Eosinophils 1.0 % (0.0-10.0); %Lymphocytes 53.8 % (21.0-51.0); %Monocytes 19.4 % (0.0-10.0); %Neutrophils 25.0 % (42.0-75.0); Hematocrit 36.7 % (42.0-52.0); Hemoglobin 11.0 g/dL (14.0-18.0); Mean Corpuscular Hemoglobin 30.7 pg (27.0-31.0); Mean Corpuscular Volume 102.5 fL (78.0-98.0); Platelet Count 205 10x3/uL (130-400); Red Blood Cell (RBC) Count 3.58 mill/uL (4.70-6.10); White Blood Cell (WBC) Count 8.73 10x3/uL (4.8-10.8)
[2025-04-26 10:08] LABS: ALT (SGPT) Less than 7 U/L (Less than 45); AST (SGOT) 14 U/L (11-34); Albumin 3.4 g/dL (3.1-4.5); Alkaline Phosphatase 62 U/L (40-110); Anion Gap 18 mmol/L (10-20); BUN (Urea Nitrogen) 12 mg/dL (8.4-25.7); Bilirubin, Total 0.4 mg/dL (0.3-1.2); Calc. Creatinine Clearance 0 mL/min (70-130); Calcium 8.3 mg/dL (7.8-10.44); Carbon Dioxide 21 mmol/L (23-31); Chloride 107 mmol/L (98-107); Globulin 4.1 g/dL (2.4-3.5); Glucose 98 mg/dL (83-110); Potassium 3.0 mmol/L (3.5-5.1); Sodium 143 mmol/L (136-145)
[2025-04-26 13:17] LABS: Bacteria/HPF 4+ HPF (None Seen); CAUTI Indications for Culture Alt mental st,lethar; Glucose, Urine (Dipstick) Normal (Negative); Leukocyte 250 Leu/uL (Negative); Protein, Urine (Dipstick) Negative (Neg-Trace); Specific Gravity, Urine 1.007 (1.002-1.036); WBC/HPF 21-50 HPF (0-3)
[2025-04-26 13:28] LABS: Urine Culture Reflex Yes Yes
[2025-04-26] MEDS ORDERED: cefTRIAXone (ROCEPHIN) 1 GM VIAL ONE (13:37)
== END 2025-04-26 14:51 | disposition short-term general hospital (02) ==
LOC: ERS 09:08
DX: G40.901 Epilepsy, unspecified, not intractable, with status epilepticus (principal); I10 Essential (primary) hypertension; I48.91 Unspecified atrial fibrillation; Z86.73 Personal history of transient ischemic attack (TIA), and cerebral infarction without residual deficits
CPT/HCPCS: 70450; 71045; 80053; 80177; 81001; 83605; 84145; 85025; 87077; 87086; 87186; 87428; 93005; 95819; 96365; 96366; 96368; 96375; 99285; C9254; J0696; J1953; J2060

== ENCOUNTER 2025-05-02 09:26 | Emergency (ER) | payer MEDICARE, OTHER ==
[2025-05-02] MEDS ORDERED: Iopamidol-370 76% 500 ML MDV (1 ML CHARGE) ONE (09:56)
[2025-05-02 10:23] LABS: #Basophils 0.05 10x3/uL (0.0-0.2); #Eosinophils 0.14 10x3/uL (0.0-0.7); #Monocytes 0.97 10x3/uL (0.11-0.59); #Neutrophils 4.87 10x3/uL (1.40-6.50); %Basophils 0.5 % (0.0-1.0); %Eosinophils 1.4 % (0.0-10.0); %Lymphocytes 37.5 % (21.0-51.0); %Monocytes 10.0 % (0.0-10.0); %Neutrophils 50.3 % (42.0-75.0); Hematocrit 29.3 % (42.0-52.0); Hemoglobin 9.1 g/dL (14.0-18.0); Mean Corpuscular Hemoglobin 31.1 pg (27.0-31.0); Mean Corpuscular Volume 100.0 fL (78.0-98.0); Platelet Count 214 10x3/uL (130-400); Red Blood Cell (RBC) Count 2.93 mill/uL (4.70-6.10); White Blood Cell (WBC) Count 9.69 10x3/uL (4.8-10.8)
[2025-05-02 10:43] LABS: ALT (SGPT) 7 U/L (Less than 45); AST (SGOT) 18 U/L (11-34); Albumin 3.3 g/dL (3.1-4.5); Alkaline Phosphatase 58 U/L (40-110); Anion Gap 13 mmol/L (10-20); BUN (Urea Nitrogen) 21 mg/dL (8.4-25.7); Bilirubin, Total 0.3 mg/dL (0.3-1.2); Calc. Creatinine Clearance 0 mL/min (70-130); Calcium 8.7 mg/dL (7.8-10.44); Carbon Dioxide 26 mmol/L (23-31); Chloride 109 mmol/L (98-107); Globulin 4.2 g/dL (2.4-3.5); Glucose 122 mg/dL (83-110); Potassium 3.8 mmol/L (3.5-5.1); Sodium 144 mmol/L (136-145)
[2025-05-02 11:57] LABS: Bacteria/HPF None Seen HPF (None Seen); CAUTI Indications for Culture Pelvic or flank pain; Glucose, Urine (Dipstick) Normal (Negative); Leukocyte Negative Leu/uL (Negative); Protein, Urine (Dipstick) 10 mg/dL (Neg-Trace); Specific Gravity, Urine 1.024 (1.002-1.036); WBC/HPF 0-3 HPF (0-3)
[2025-05-02 11:58] LABS: Urine Culture Reflex No No
== END 2025-05-02 15:05 ==
LOC: ERS 09:26
DX: R31.9 Hematuria, unspecified (principal); D53.9 Nutritional anemia, unspecified; R33.9 Retention of urine, unspecified; U07.1 COVID-19; I48.91 Unspecified atrial fibrillation; Z86.73 Personal history of transient ischemic attack (TIA), and cerebral infarction without residual deficits; E78.5 Hyperlipidemia, unspecified; I10 Essential (primary) hypertension; Z79.82 Long term (current) use of aspirin; Z79.899 Other long term (current) drug therapy
CPT/HCPCS: 51701; 74177; 80053; 81001; 85025; 86850; 86900; 86901; Q9967